=== PATIENT | male | born 1960 | race Caucasian/White ===

== ENCOUNTER → 2017-02-15 | Day surgery (SDC) | payer BC ==
[2017-01-30 09:05] VITALS: Ht 175.3 cm; Wt 78.6 kg
[~2017-02-15] VITALS: Ht 175.3 cm; Wt 78.6 kg
[~2017-02-15] MED LIST: ASPCH81X PO; FENTANYL CITRATE INJ 50 MCG/1 ML 2 ML VIAL ONE; GEMF600T5 PO; LIDOCAINE HCL 2% 2 ML VIAL (20MG/ML) ONE; MULTTAB58 PO; PRLSR20 PO; PROPOFOL IV EMULSION 10 MG/ML 20 ML VIAL IV ONE; SODIUM CHLORIDE 0.9% 500ML 500 ML IV ONE
[2017-02-15 13:26] VITALS: TEMP 36.3
--- NOTE | 2017-02-15 14:18 | Endo History and Physical ---
History & Physical Date of Service: Feb 15, 2017. Chief Complaint: Cirrhosis and celiac Referring Physician: Jessica Peterson History of Present Illness HCV/cirrhosis assess for varices/need for banding vamsi Past Surgical History Hx Cardiac Surgery: No Hx Internal Defibrillator: No Hx Pacemaker: No Hx Abdominal Surgery: No Hx of Implantable Prosthesis: No Hx Post-Op Nausea and Vomiting: No Hx Cancer Surgery: No Hx Thoracic Surgery: No Hx Orthopedic: Yes (RT KNEE ARTHROSCOPY X 2, LEFT RCR) Hx Urinary Tract Surgery: No Family History None Social History Smoking Status: Former Smoker Hx Substance Use: No Hx Alcohol Use: Yes (OCCASIONALLY) Allergies Coded Allergies: NO KNOWN DRUG ALLERGIES (Verified Allergy, Unknown, ., 01/30/17) Current Medications Reported Home Medications Medications Dose Route/Sig Max Daily Dose Days Date Category Multivitamin (Multiple Vitamin) 1 Tab Tab 1 Tab PO QAM 01/30/17 Reported Aspirin Chewable (Aspirin) 81 Mg Chew 81 Mg PO Q2D 01/30/17 Reported Prilosec (Omeprazole) 20 Mg Capcr 20 Mg PO Q2D 01/30/17 Reported Lopid (Gemfibrozil) 600 Mg Tab 600 Mg PO QAM 01/30/17 Reported Vital Signs Weight (Kilograms): 78.64 Height (Feet): 5 Height (Inches): 9 Date Time Temp Pulse Resp B/P (MAP) Pulse Ox O2 Delivery O2 Flow Rate FiO2 02/15/17 13:26 36.3 50 18 176/87 (116) 97 Room Air Physical Exam General Appearance: WD/WN, no apparent distress Respiratory/Chest: Auscultation: breath sounds normal Cardiovascular: Heart Auscultation: RRR Abdomen: Bowel Sounds: normal Inspection & Palpation: soft, non-distended, no tenderness, guarding & rebound Assessment and Plan EGD with possible banding
--- NOTE | 2017-02-15 14:47 | GI REPORT ---
Procedure Date: 02/15/2017 2:22 PM Procedure: Upper GI endoscopy Indications: Celiac disease, Esophageal varices, Follow-up of esophageal varices Medicines: Propofol per Anesthesia Complications: No immediate complications. Estimated blood loss: Minimal. Estimated Blood Loss: Estimated blood loss was minimal. Procedure: Pre-Anesthesia Assessment: - Prior to the procedure, a History and Physical was performed, and patient medications and allergies were reviewed. The patient's tolerance of previous anesthesia was also reviewed. The risks and benefits of the procedure and the sedation options and risks were discussed with the patient. All questions were answered, and informed consent was obtained. Prior Anticoagulants: The patient has taken no previous anticoagulant or antiplatelet agents. ASA Grade Assessment: II - A patient with mild systemic disease. After reviewing the risks and benefits, the patient was deemed in satisfactory condition to undergo the procedure. After obtaining informed consent, the endoscope was passed under direct vision. Throughout the procedure, the patient's blood pressure, pulse, and oxygen saturations were monitored continuously. The scope was introduced through the mouth, and advanced to the second part of duodenum. The upper GI endoscopy was accomplished without difficulty. The patient tolerated the procedure well. Findings: The examined esophagus was normal. A small hiatal hernia was found. The proximal extent of the gastric folds (end of tubular esophagus) was 39 cm from the incisors. The hiatal narrowing was 41 cm from the incisors. The Z-line was 39 cm from the incisors. The Z-line was irregular and was found 39 cm from the incisors. Mild, diffuse portal hypertensive gastropathy was found in the gastric fundus and in the gastric body. The exam of the stomach was otherwise normal. Retained gastric contents are not identified on this exam. The examined duodenum was normal. Biopsies for histology were taken with a cold forceps for evaluation of celiac disease. Estimated blood loss was minimal. Verification of patient identification for the specimen was done by the physician and voip network technician using the patient's name and medical record number. Two columns of non-bleeding grade I, small (< 5 mm) varices were found in the lower third of the esophagus, 35 to 39 cm from the incisors. They were 3 mm in largest diameter. No stigmata of recent bleeding were evident and no red pooja signs were present. Impression: - Normal esophagus. - Small hiatal hernia. - Z-line irregular, 39 cm from the incisors. - Portal hypertensive gastropathy. - Normal examined duodenum. Biopsied. - Non-bleeding grade I and small (< 5 mm) esophageal varices. Recommendation: - Discharge patient to home (ambulatory). - Advance diet as tolerated. - Continue present medications. - Await pathology results. - Return to liver clinic as previously scheduled. - Return to GI clinic with Dr James as previously scheduled. - Return to referring physician as previously scheduled. MD Lamont King MD 02/15/2017 2:47:11 PM This report has been signed electronically. Note Initiated On: 02/15/2017 2:22 PM I attest to the content of the Intraoperative Record and orders documented therein, exceptions below
--- NOTE | 2017-02-15 14:49 | Discharge Instructions ---
Endoscopy Patient Instructions Date / Procedure(s) Performed Feb 15, 2017. EGD Allergy Information Coded Allergies: NO KNOWN DRUG ALLERGIES (Verified Allergy, Unknown, ., 01/30/17) Discharge Date / Findings Feb 15, 2017. mild portal gastropathy/mild Grade 1 varices ( eso) bx for celiac dz hx Medication Instructions Restart Stopped Medication(s): Reported Home Medications Medications Dose Route/Sig Max Daily Dose Days Date Category Multivitamin (Multiple Vitamin) 1 Tab Tab 1 Tab PO QAM 01/30/17 Reported Aspirin Chewable (Aspirin) 81 Mg Chew 81 Mg PO Q2D 01/30/17 Reported Prilosec (Omeprazole) 20 Mg Capcr 20 Mg PO Q2D 01/30/17 Reported Lopid (Gemfibrozil) 600 Mg Tab 600 Mg PO QAM 01/30/17 Reported Reported Home Medications Medications Dose Route/Sig Max Daily Dose Days Date Category Multivitamin (Multiple Vitamin) 1 Tab Tab 1 Tab PO QAM 01/30/17 Reported Aspirin Chewable (Aspirin) 81 Mg Chew 81 Mg PO Q2D 01/30/17 Reported Prilosec (Omeprazole) 20 Mg Capcr 20 Mg PO Q2D 01/30/17 Reported Lopid (Gemfibrozil) 600 Mg Tab 600 Mg PO QAM 01/30/17 Reported Provider Instructions Activity Restrictions - No exercising or heavy lifting for 24 hours. - Do not drink alcohol the day of the procedure. - Do not drive a car or operate machinery until the day after the procedure. - Do not make any important decisions or sign important papers in 24 hours after the procedure. Following Day: - Return to full activity which may include returning to work/school. Diet Start your diet with liquids and light foods (jello, soup, juice, toast). Then eat your usual diet if not nauseated. Treatment For Common After Affects For mild abdominal pain, bloating, or excessive gas: - Rest - Eat lightly - Lie on right side Follow-Up Information Follow-up with Jessica Peterson as scheduled Anesthesia Information What You Should Know You have had a procedure that required some medicine to reduce anxiety and discomfort. This treatment is called moderate sedation. After receiving the treatment, you may be sleepy, but you will be able to breathe on your own. The effects of the treatment may last for several hours. Follow these instructions along with Activity/Diet recommendations noted above: * Do NOT do anything where dizziness or clumsiness would be dangerous. * Rest quietly at home today, then you can be up and about tomorrow. * Have a responsible person stay with you the rest of today. * You may have had an I.V. today. If so, you may take the dressing off later today. Recommendations Call your doctor if: * Trouble breathing * Continuous vomiting for more than 24 hours * Temperature above 101 degrees * Severe abdominal pain or bloating * Pain not relieved by pain medicine ordered * There is increased drainage or redness from any incision * A large amount of rectal bleeding greater than 2-3 tablespoons. (If you had a polyp/s removed or have hemorrhoids, a small amount of blood - from the rectum is to be expected.) * You have any unanswered questions or concerns. IN THE EVENT OF A SERIOUS EMERGENCY, GO TO THE NEAREST EMERGENCY ROOM Your discharge instructions were prepared by provider Lamont Kwok. Patient Instructions Signature Page Mauricio Sellers Patient (or Guardian) Signature/Date: I have read and understand the instructions given to me by my caregivers. Caregiver/RN/Doctor Signature/Date: The above-named patient and/or guardian has received patient instructions on this date. + Original Patient Signature Page (only) stays with chart. Please make copy for patient.
[2017-02-15 15:09] VITALS: BP 137/84; PULSE 52; O2SAT 97
--- NOTE | 2017-02-15 15:12 | Anesthesiology Progress Note ---
Anesthesia Post Op Note Date & Time Feb 15, 2017 at 15:11 Vital Signs Pain Intensity: 0 Vital Signs Past 12 Hours Date Time Temp Pulse Resp B/P (MAP) Pulse Ox O2 Delivery O2 Flow Rate FiO2 02/15/17 15:01 48 18 131/71 (91) 95 Room Air 02/15/17 14:52 51 18 134/68 (90) 97 Room Air 02/15/17 14:46 49 18 117/60 (79) 96 Room Air 02/15/17 13:26 36.3 50 18 176/87 (116) 97 Room Air Notes Mental Status: alert / awake / arousable, participated in evaluation Pt Amnestic to Procedure: Yes Nausea / Vomiting: adequately controlled Pain: adequately controlled Airway Patency, RR, SpO2: stable & adequate BP & HR: stable & adequate Hydration State: stable & adequate Anesthetic Complications: no major complications apparent
== END | disposition home or self-care (01) ==
LOC: C.GI 13:04
PROVIDERS: ATTEND Internal Medicine Gastroenterology
DX: K74.60 Unspecified cirrhosis of liver (principal); K90.0 Celiac disease; K31.89 Other diseases of stomach and duodenum; K44.9 Diaphragmatic hernia without obstruction or gangrene; I85.00 Esophageal varices without bleeding; Z87.891 Personal history of nicotine dependence; Z86.19 Personal history of other infectious and parasitic diseases; Z79.82 Long term (current) use of aspirin